=== PATIENT | female | born 1990 | race Caucasian/White ===

== ENCOUNTER 2017-05-30 08:20 | Emergency (ER) | payer SELFPAY ==
[2017-05-30 09:12] VITALS: BP 109/75
--- NOTE | 2017-05-30 09:52 | UC ---
Respiratory Complaint HPI - HPI Summary HPI Summary: 26 yo female with three day hx of runny nose/sore throat/ cough no f/c no n/v/d - History of Current Complaint Chief Complaint: UCRespiratory Stated Complaint: SORE THROAT, COUGH Time Seen by Provider: 05/30/17 09:30 Hx Obtained From: Patient Hx Last Menstrual Period: 05/25/17 Onset/Duration: Gradual Onset, Lasting Days Timing: Constant Severity Initially: Mild Severity Currently: Mild Pain Intensity: 3 Pain Scale Used: 0-10 Numeric Character: Cough: Nonproductive Aggravating Factors: Nothing Alleviating Factors: Nothing Associated Signs And Symptoms: Positive: Nasal Congestion - Allergies/Home Medications Allergies/Adverse Reactions: Allergies Allergy/AdvReac Type Severity Reaction Status Date / Time No Known Allergies Allergy Verified 05/30/17 09:05 Home Medications: Home Medications NK [No Home Medications Reported] 05/30/17 [History Confirmed 05/30/17] PMH/Surg Hx/FS Hx/Imm Hx Previously Healthy: Yes Respiratory History: Asthma - Surgical History Surgical History: Yes Surgery Procedure, Year, and Place: appy - Family History Known Family History: Positive: Hypertension, Diabetes Negative: Respiratory Disease - Social History Alcohol Use: None Substance Use Type: None Smoking Status (MU): Former Smoker When Did the Patient Quit Smoking/Using Tobacco: 2016 Review of Systems Constitutional: Negative Skin: Negative Eyes: Negative ENT: Sore Throat, Nasal Discharge Respiratory: Cough Cardiovascular: Negative Gastrointestinal: Negative Genitourinary: Negative Motor: Negative Neurovascular: Negative Musculoskeletal: Negative Neurological: Negative Psychological: Negative Is Patient Immunocompromised?: No All Other Systems Reviewed And Are Negative: Yes Physical Exam Triage Information Reviewed: Yes Appearance: Well-Appearing, No Pain Distress, Well-Nourished Vital Signs: Initial Vital Signs Temp 97.5 F 05/30/17 09:06 Pulse 61 05/30/17 09:06 Resp 18 05/30/17 09:06 BP 109/75 05/30/17 09:06 Pulse Ox 99 05/30/17 09:06 Vital Signs Reviewed: Yes Eyes: Positive: Conjunctiva Clear ENT: Positive: Pharyngeal erythema, TMs normal. Negative: Nasal congestion, Nasal drainage, Tonsillar swelling, Tonsillar exudate, Muffled voice, Uvula midline Neck: Positive: Supple, Nontender, No Lymphadenopathy Respiratory: Positive: Lungs clear, Normal breath sounds, No respiratory distress, No accessory muscle use Cardiovascular: Positive: RRR, No Murmur Musculoskeletal: Positive: ROM Intact, No Edema Neurological: Positive: Alert Psychological Exam: Normal Skin Exam: Normal UC Diagnostic Evaluation - Laboratory Pertinent Lab Values Are: WNL - strep (-) O2 Sat by Pulse Oximetry: 99 - normal/not hypoxic Respiratory Course/Dx - Differential Dx/Diagnosis Provider Diagnoses: viral URI Discharge - Sign-Out/Discharge Documenting (check all that apply): Discharge - Discharge Plan Condition: Stable Disposition: HOME Patient Education Materials: Viral Syndrome (ED) Referrals: Non Staff,Doctor [Primary Care Provider] - Additional Instructions: recheck in three days if not better recheck for new or worsening symptoms tylenol or ibuprofen if needed plain robitussin or mucinex - Billing Disposition and Condition Condition: STABLE Disposition: HOME
== END 2017-05-30 10:00 | disposition home or self-care (01) ==
LOC: UCCORT 08:20
DX: Z87.891 Personal history of nicotine dependence (principal); J06.9 Acute upper respiratory infection, unspecified
CPT/HCPCS: 87651; 99201; G0463